=== PATIENT | female | born 1990 | race Caucasian/White ===

== ENCOUNTER 2022-03-09 13:24 | Emergency (ER) | payer OTHER ==
[~2022-03-09 13:24] MED LIST: CELEXA10 MG PO; FERROUS SULFAT325 M2 PO; NORCO 5-325 TA1 EACH PO; NORVASC 5 MG TAB5 MG PO
== END 2022-03-09 17:22 | disposition home or self-care (01) ==
LOC: ER1 13:24
DX: S80.12XA Contusion of left lower leg, initial encounter (principal); F17.200 Nicotine dependence, unspecified, uncomplicated; V43.52XA Car driver injured in collision with other type car in traffic accident, initial encounter; Y92.410 Unspecified street and highway as the place of occurrence of the external cause
CPT/HCPCS: 71045; 71100; 73590; 99283